=== PATIENT | male | born 1965 | race Caucasian/White ===

== ENCOUNTER 2024-06-28 14:19 | Emergency (ER) | payer OTHER, SELFPAY ==
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
[2024-06-28 14:30] VITALS: BP 126/80; BP 149/77; PULSE 103; PULSE 98; RESP 18; TEMP 36.4; O2SAT 100; O2SAT 98; BMI 26.9
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
[2024-06-28 18:21] VITALS: BP 149/77; PULSE 98; RESP 18; TEMP 36.4; O2SAT 98
== END 2024-06-28 18:22 | disposition home or self-care (01) ==
PROVIDERS: Emergency Provider Emergency Medicine
DX: S09.90XA Unspecified injury of head, initial encounter (principal); M79.605 Pain in left leg; M54.2 Cervicalgia; R51.9 Headache, unspecified; M16.12 Unilateral primary osteoarthritis, left hip; V43.52XA Car driver injured in collision with other type car in traffic accident, initial encounter; Y93.89 Activity, other specified; Y92.488 Other paved roadways as the place of occurrence of the external cause; Y99.8 Other external cause status
CPT/HCPCS: 70450; 72125; 72170; 73552; 99282; 99284

== ENCOUNTER → 2024-06-28 14:36 | Outpatient (BNV) | payer OTHER, SELFPAY | PROVIDERS: Visit Provider Radiology Diagnostic Radiology | DX: M54.2 Cervicalgia (principal); S09.90XA Unspecified injury of head, initial encounter; M79.605 Pain in left leg; R10.2 Pelvic and perineal pain | CPT/HCPCS: 70450; 72125; 72170; 73552 ==